=== PATIENT | male | born 1950 | race African-American/Black ===

== ENCOUNTER 2017-08-25 20:14 | Inpatient (IN) ==
[2017-08-25] MEDS ORDERED: PANTOPRAZOLE 40 MG VIAL IV STA (20:59)
[2017-08-25 21:17] LABS: Eosinophils % 0.6 % (0.00-10.9); Immature Granulocytes % 0.5 %; Immature Granulocytes Absolute 0.03 #; Lymphocytes # 0.5 10*3/uL (1.4-4.0); Lymphocytes % 7.5 % (21.2-54.2); Mean Corpuscular HGB Conc 32.9 GM/DL (32-36); Mean Corpuscular Hemoglobin 30 PG (27-34); Mean Corpuscular Volume 91.9 FL (87-102); Mean Platelet Volume 9.9 FL (9.6-12.0); Monocytes # 0.7 10*3/uL (0.11-0.8); Neutrophils # 5.1 10*3/uL (1.4-7.4); Neutrophils % 80.4 % (38.7-73.9); Platelet Count 309 T/CUMM (130-400); Red Blood Count 1.85 MC/CUMM (3.8-5.5); Red Cell Distribution Width 16.7 % (9.3-17.3); White Blood Count 6.4 T/CUMM (4-12)
[2017-08-25 21:21] LABS: Hemoglobin 5.6 GM/DL (14.0-18.0)
[2017-08-25] MEDS ORDERED: SODIUM CHLORIDE 0.9% 1,000 ML IV PRN (21:24)
[2017-08-25 21:25] LABS: INR 1.1; PT Patient Result 11.6 SECS
[2017-08-25 21:36] LABS: Alanine Aminotransferase 23 U/L (16-61); Albumin 3.8 G/DL (3.4-5.0); Alkaline Phosphatase 92 U/L (45-117); Aspartate Amino Transferase 29 U/L (0-37); Bilirubin,Total < 0.39 MG/DL (0.2-1.0); Blood Urea Nitrogen 38 MG/DL (7-18); Calcium 9.6 MG/DL (8.5-10.1); Glucose 96 MG/DL (74-106); Osmolality,Calculated 285.5 MOS/KG (273-304); Potassium 3.6 MMOL/L (3.5-5.1); Sodium 139 MMOL/L (136-145); Total Protein 7.5 G/DL (6.4-8.3)
[2017-08-25 21:38] LABS: Troponin I Only < 0.015 NG/ML (0.00-0.045)
[2017-08-26] MEDS ORDERED: ALBUTEROL/IPRATROPIUM 3 ML NEB RESP TX PRN (00:17)
[2017-08-26] MEDS ORDERED: MORPHINE 2 MG/1 ML SYRINGE IV PRN (00:17)
[2017-08-26] MEDS ORDERED: PROMETHAZINE 25 MG/1 ML VIAL IM PRN (00:17)
[2017-08-26] MEDS ORDERED: SODIUM CHLORIDE 0.9% 1,000 ML IV PRN (00:17)
[2017-08-26] MEDS ORDERED: diphenhydrAMINE 50 MG/1 ML VIAL IV ONE (01:46)
[2017-08-26] MEDS ORDERED: METOCLOPRAMIDE 10 MG/2 ML VIAL IV ONE (01:46)
[2017-08-26] MEDS ORDERED: DEXAMETHASONE 4 MG/1 ML VIAL IV ONE (01:49)
[2017-08-26] MEDS: SODIUM CHLORIDE 0.9% 1,000 ML IV SCH ×2 (02:03→21:19)
[2017-08-26] MEDS ORDERED: FAMOTIDINE 20 MG/2 ML VIAL IV ONE (02:12)
[2017-08-26] MEDS: ALBUTEROL/IPRATROPIUM 3 ML NEB RESP TX SCH ×4 (02:18→17:45)
[2017-08-26] MEDS ORDERED: SODIUM CHLORIDE 0.9% 1,000 ML IV ONE (04:14)
[2017-08-26] MEDS: PANTOPRAZOLE 40 MG VIAL IV SCH ×2 (08:37→21:18)
[2017-08-26] MEDS: LEVOTHYROXINE 100 MCG VIAL IV SCH (09:19)
[2017-08-26 10:08] LABS: Hematocrit 26.6 VOL% (42.0-52.0); Hemoglobin 8.8 GM/DL (14.0-18.0)
[2017-08-26] MEDS ORDERED: LORazepam 1 MG TABLET PO PRN (11:00)
[2017-08-26] MEDS ORDERED: MORPHINE 10 MG/5 ML UDCUP PO PRN (11:06)
[2017-08-26] MEDS: ALUMINUM/MAGNES/SIMETH MAX STR 30 ML UDCUP PO SCH ×4 (11:50→23:00)
[2017-08-26] MEDS: SERTRALINE 100 MG TABLET PO SCH (11:51)
[2017-08-26 12:39] LABS: Hematocrit 33.2 VOL% (42.0-52.0); Hemoglobin 10.4 GM/DL (14.0-18.0)
[2017-08-26 15:46] LABS: Hematocrit 28.9 VOL% (42.0-52.0); Hemoglobin 9.5 GM/DL (14.0-18.0)
[2017-08-26 16:09] LABS: % Iron Saturation 9.9 % (18-50); Ferritin 18.2 ng/ml (26-388)
[2017-08-26 18:30] LABS: Apearance,Urine Slightly Hazy (Clear); Bacteria,Urine Occasional /HPF (Few); Bilirubin,Urine Negative (Negative); Blood, Urine Negative (Negative); Glucose,Urine (UA) Negative (Negative); Ketones,Urine Negative (Negative); Mucus,Urine Occasional /LPF (Occasional); Nitrite,Urine Negative (Negative); Protein,Urine Negative; RBC,Urine 1 /HPF (0-4); Urine Color Yellow (Yellow); Urine Urobilinogen < 2.0 EU/DL (0.2-1.0); WBC,Urine 1 /HPF (0-6)
[2017-08-26] MEDS: DONEPEZIL 5 MG TABLET PO SCH (21:21)
[2017-08-26] MEDS: traZODone 50 MG TABLET PO SCH (21:21)
[2017-08-26 21:31] LABS: Hematocrit 29.3 VOL% (42.0-52.0); Hemoglobin 9.3 GM/DL (14.0-18.0)
[2017-08-27] MEDS: ALBUTEROL/IPRATROPIUM 3 ML NEB RESP TX SCH ×4 (01:10→19:28)
[2017-08-27 05:19] LABS: Basophils % 0.4 % (0.0-0.8); Eosinophils # 0.1 10*3/uL (0.0-0.87); Eosinophils % 2.3 % (0.00-10.9); Hematocrit 24.3 VOL% (42.0-52.0); Hemoglobin 8.1 GM/DL (14.0-18.0); Immature Granulocytes % 0.4 %; Immature Granulocytes Absolute 0.02 #; Lymphocytes # 0.4 10*3/uL (1.4-4.0); Lymphocytes % 7.8 % (21.2-54.2); Mean Corpuscular HGB Conc 33.3 GM/DL (32-36); Mean Corpuscular Hemoglobin 31 PG (27-34); Mean Platelet Volume 9.6 FL (9.6-12.0); Monocytes # 0.6 10*3/uL (0.11-0.8); Monocytes % 11.1 % (1.7-12.7); Neutrophils # 4.4 10*3/uL (1.4-7.4); Platelet Count 208 T/CUMM (130-400); Red Blood Count 2.64 MC/CUMM (3.8-5.5); Red Cell Distribution Width 16.1 % (9.3-17.3); White Blood Count 5.7 T/CUMM (4-12)
[2017-08-27 05:52] LABS: Calcium 8.3 MG/DL (8.5-10.1); Osmolality,Calculated 283.3 MOS/KG (273-304); Potassium 3.8 MMOL/L (3.5-5.1)
[2017-08-27] MEDS: PANTOPRAZOLE 40 MG VIAL IV SCH ×2 (09:09→21:06)
[2017-08-27] MEDS ORDERED: PROPOFOL 200 MG/20 ML VIAL IV ONE (11:39)
[2017-08-27] MEDS ORDERED: LIDOCAINE 2% 5 ML VIAL ONE (11:39)
[2017-08-27] MEDS ORDERED: SODIUM CHLORIDE 0.9% 1,000 ML IV PRN ×2 (12:12)
[2017-08-27] MEDS ORDERED: IRON DEXTRAN 25 MG in SYRINGE 1 EACH IV ONE (13:00)
[2017-08-27] MEDS: SERTRALINE 100 MG TABLET PO SCH (13:14)
[2017-08-27] MEDS: LEVOTHYROXINE 125 MCG TABLET PO SCH (13:14)
[2017-08-27] MEDS: MEMANTINE 5 MG TABLET PO SCH (13:14)
[2017-08-27] MEDS: cefTRIAXone 1,000 MG in SYRINGE 1 EACH IV SCH (13:54)
[2017-08-27 14:21] LABS: Hematocrit 29.5 VOL% (42.0-52.0); Hemoglobin 9.9 GM/DL (14.0-18.0)
[2017-08-27] MEDS: ONDANSETRON 4 MG/2 ML VIAL IV PRN (15:13)
[2017-08-27] MEDS ORDERED: IRON DEXTRAN 1,500 MG in SODIUM CHLORIDE 0.9% 500 ML IV ONE (16:00)
[2017-08-27] MEDS: LEVOTHYROXINE 100 MCG VIAL IV SCH (18:11)
[2017-08-27] MEDS: ALUMINUM/MAGNES/SIMETH MAX STR 30 ML UDCUP PO PRN (18:45)
[2017-08-27] MEDS: DONEPEZIL 5 MG TABLET PO SCH (21:06)
[2017-08-27] MEDS: traZODone 50 MG TABLET PO SCH (21:06)
[2017-08-27] MEDS: MORPHINE 10 MG/5 ML UDCUP PO PRN (21:31)
[2017-08-28] MEDS: ALBUTEROL/IPRATROPIUM 3 ML NEB RESP TX SCH ×4 (00:23→19:25)
[2017-08-28 06:06] LABS: Basophils % 0.3 % (0.0-0.8); Eosinophils # 0.2 10*3/uL (0.0-0.87); Eosinophils % 2.8 % (0.00-10.9); Hemoglobin 8.3 GM/DL (14.0-18.0); Immature Granulocytes % 0.3 %; Immature Granulocytes Absolute 0.02 #; Lymphocytes # 0.4 10*3/uL (1.4-4.0); Lymphocytes % 5.5 % (21.2-54.2); Mean Corpuscular HGB Conc 33.2 GM/DL (32-36); Mean Corpuscular Hemoglobin 30 PG (27-34); Mean Corpuscular Volume 91.6 FL (87-102); Mean Platelet Volume 9.7 FL (9.6-12.0); Monocytes # 0.5 10*3/uL (0.11-0.8); Monocytes % 8.4 % (1.7-12.7); Neutrophils # 5.2 10*3/uL (1.4-7.4); Neutrophils % 82.7 % (38.7-73.9); Platelet Count 216 T/CUMM (130-400); Red Blood Count 2.73 MC/CUMM (3.8-5.5); Red Cell Distribution Width 16.1 % (9.3-17.3); White Blood Count 6.3 T/CUMM (4-12)
[2017-08-28 06:43] LABS: Calcium 8.5 MG/DL (8.5-10.1); Osmolality,Calculated 280.4 MOS/KG (273-304); Potassium 3.2 MMOL/L (3.5-5.1); Prealbumin 29.1 MG/DL (20-40)
[2017-08-28 06:50] LABS: Free T4 (Free Thyroxine) 0.41 NG/DL (0.76-1.46); Thyroid Stimulating Hormone 88.3 uIU/ml (0.358-3.74)
[2017-08-28] MEDS ORDERED: POTASSIUM CHLORIDE 20 MEQ TABLET PO PRN (08:57)
[2017-08-28] MEDS ORDERED: POTASSIUM CHLORIDE 20 MEQ TABLET PO ONE (09:00)
[2017-08-28] MEDS: LEVOTHYROXINE 125 MCG TABLET PO SCH (09:08)
[2017-08-28] MEDS: MEMANTINE 5 MG TABLET PO SCH (09:09)
[2017-08-28] MEDS: cefTRIAXone 1,000 MG in SYRINGE 1 EACH IV SCH (09:09)
[2017-08-28] MEDS: PANTOPRAZOLE 40 MG VIAL IV SCH ×2 (09:10→21:04)
[2017-08-28] MEDS: SERTRALINE 100 MG TABLET PO SCH (10:27)
[2017-08-28] MEDS ORDERED: LIDOCAINE 2% 20 ML VIAL MISC INJ ONE (13:00)
[2017-08-28] MEDS ORDERED: TRIAMCINOLONE ACETONIDE 40 MG/1 ML VIAL MISC INJ ONE (13:00)
[2017-08-28] MEDS ORDERED: LIDOCAINE 2%/EPI 20 ML VIAL MISC INJ ONE (13:30)
[2017-08-28] MEDS: ONDANSETRON 4 MG/2 ML VIAL IV PRN (13:43)
[2017-08-28 15:25] LABS: Hematocrit 26.9 VOL% (42.0-52.0); Hemoglobin 8.7 GM/DL (14.0-18.0)
[2017-08-28] MEDS: ALUMINUM/MAGNES/SIMETH MAX STR 30 ML UDCUP PO PRN (15:34)
[2017-08-28] MEDS: DONEPEZIL 5 MG TABLET PO SCH (21:02)
[2017-08-28] MEDS: traZODone 50 MG TABLET PO SCH (21:02)
[2017-08-28] MEDS: MORPHINE 10 MG/5 ML UDCUP PO PRN (21:11)
[2017-08-29] MEDS: ALBUTEROL/IPRATROPIUM 3 ML NEB RESP TX SCH ×2 (00:26→06:47)
[2017-08-29 07:36] LABS: Basophils % 0.2 % (0.0-0.8); Eosinophils # 0.1 10*3/uL (0.0-0.87); Eosinophils % 2.3 % (0.00-10.9); Hematocrit 25.4 VOL% (42.0-52.0); Hemoglobin 8.2 GM/DL (14.0-18.0); Immature Granulocytes % 0.2 %; Immature Granulocytes Absolute 0.01 #; Lymphocytes # 0.3 10*3/uL (1.4-4.0); Mean Corpuscular HGB Conc 32.3 GM/DL (32-36); Mean Corpuscular Hemoglobin 30 PG (27-34); Mean Platelet Volume 9.6 FL (9.6-12.0); Monocytes # 0.4 10*3/uL (0.11-0.8); Monocytes % 8.5 % (1.7-12.7); Neutrophils # 3.9 10*3/uL (1.4-7.4); Neutrophils % 82.8 % (38.7-73.9); Platelet Count 235 T/CUMM (130-400); Red Blood Count 2.76 MC/CUMM (3.8-5.5); White Blood Count 4.7 T/CUMM (4-12)
[2017-08-29 08:03] LABS: Calcium 8.7 MG/DL (8.5-10.1); Osmolality,Calculated 281.3 MOS/KG (273-304); Potassium 3.8 MMOL/L (3.5-5.1)
[2017-08-29 08:08] VITALS: BP 107/64
[2017-08-29] MEDS: SERTRALINE 100 MG TABLET PO SCH (08:57)
[2017-08-29] MEDS: cefTRIAXone 1,000 MG in SYRINGE 1 EACH IV SCH (08:57)
[2017-08-29] MEDS: MEMANTINE 5 MG TABLET PO SCH (08:57)
[2017-08-29] MEDS: LEVOTHYROXINE 125 MCG TABLET PO SCH (08:57)
[2017-08-29] MEDS: PANTOPRAZOLE 40 MG VIAL IV SCH (09:13)
== END 2017-08-29 11:15 | disposition home or self-care (01) | DRG 378 ==
LOC: EDBD → EDUNIT# → N.ED 20:14 → N.EDINP 22:18 → SUATTDRO 22:18 → N.CC 23:12 → N.2E 08-26 11:00
PROVIDERS: ADMIT Internal Medicine Geriatric Medicine; ATTEND Internal Medicine

== ENCOUNTER 2018-01-24 20:00 | Observation (INO) ==
[2018-01-24] MEDS ORDERED: SODIUM CHLORIDE 0.9% 500 ML IV STA (20:16)
[2018-01-24 20:51] LABS: Basophils % 0.3 % (0.0-0.8); Eosinophils # 0.1 10*3/uL (0.0-0.87); Eosinophils % 3.6 % (0.00-10.9); Hematocrit 30.7 VOL% (42.0-52.0); Hemoglobin 10.3 GM/DL (14.0-18.0); Immature Granulocytes % 0.3 %; Immature Granulocytes Absolute 0.01 #; Lymphocytes # 0.3 10*3/uL (1.4-4.0); Lymphocytes % 9.1 % (21.2-54.2); Mean Corpuscular HGB Conc 33.6 GM/DL (32-36); Mean Corpuscular Hemoglobin 34 PG (27-34); Mean Corpuscular Volume 102.7 FL (87-102); Monocytes # 0.7 10*3/uL (0.11-0.8); Monocytes % 19.9 % (1.7-12.7); Neutrophils # 2.2 10*3/uL (1.4-7.4); Neutrophils % 66.8 % (38.7-73.9); Platelet Count 204 T/CUMM (130-400); Red Blood Count 2.99 MC/CUMM (3.8-5.5); Red Cell Distribution Width 13.6 % (9.3-17.3); White Blood Count 3.3 T/CUMM (4-12)
[2018-01-24] MEDS ORDERED: methylPREDNISolone SOD SUC 125 MG/2 ML VIAL IV STA (21:01)
[2018-01-24] MEDS ORDERED: AMPICILLIN/SULBACTAM 3,000 MG in SODIUM CHLORIDE 0.9% 100 ML IV STA (21:01)
[2018-01-24 21:04] LABS: INR 1.1; PT Patient Result 11.4 SECS; Partial Thromboplastin Time 22.9 SECS (0-40)
[2018-01-24 21:05] LABS: Alanine Aminotransferase 79 U/L (16-61); Albumin 3.8 G/DL (3.4-5.0); Alkaline Phosphatase 99 U/L (45-117); Aspartate Amino Transferase 37 U/L (0-37); Blood Urea Nitrogen 32 MG/DL (7-18); Calcium 9.1 MG/DL (8.5-10.1); Glucose 121 MG/DL (74-106); Osmolality,Calculated 288.3 MOS/KG (273-304); Potassium 3.8 MMOL/L (3.5-5.1); Sodium 141 MMOL/L (136-145); Total Protein 7.9 G/DL (6.4-8.3)
[2018-01-24 21:15] LABS: Eosinophils 4 % (0-10); Lymphocytes 8 % (20-55); Platelet Estimate Normal; Total Cells Counted 100
[2018-01-24 21:16] LABS: Macrocytosis Slight; Segmented Neutrophils 76 % (50-85)
[2018-01-24] MEDS ORDERED: ONDANSETRON 4 MG/2 ML VIAL IV PRN (22:01)
[2018-01-25 00:22] LABS: Apearance,Urine Slightly Hazy (Clear); Bilirubin,Urine Negative (Negative); Blood, Urine Negative (Negative); Glucose,Urine (UA) Negative (Negative); Hyaline Casts,Urine 34 /LPF (0-3); Ketones,Urine Negative (Negative); Mucus,Urine Many /LPF (Occasional); Nitrite,Urine Negative (Negative); Protein,Urine 30 MG/DL; RBC,Urine 2 /HPF (0-4); Urine Color Amber (Yellow); WBC,Urine 3 /HPF (0-6)
[2018-01-25] MEDS: traZODone 50 MG TABLET PEG SCH ×2 (00:25→21:11)
[2018-01-25 00:31] LABS: Barbiturates Screen,Urine Negative (Negative); Benzodiazepines Screen,Urine Negative (Negative); Cannabinoid Screen,Urine Negative (Negative); Opiate Screen,Urine Positive (Negative); Phencyclidine Screen,Urine Negative (Negative)
[2018-01-25 05:12] LABS: Hematocrit 30.4 VOL% (42.0-52.0); Hemoglobin 10.3 GM/DL (14.0-18.0); Immature Granulocytes % 0.3 %; Immature Granulocytes Absolute 0.01 #; Lymphocytes # 0.2 10*3/uL (1.4-4.0); Lymphocytes % 7.7 % (21.2-54.2); Mean Corpuscular HGB Conc 33.9 GM/DL (32-36); Mean Corpuscular Hemoglobin 35 PG (27-34); Mean Corpuscular Volume 102.4 FL (87-102); Mean Platelet Volume 9.7 FL (9.6-12.0); Neutrophils # 2.6 10*3/uL (1.4-7.4); Platelet Count 198 T/CUMM (130-400); Red Blood Count 2.97 MC/CUMM (3.8-5.5); Red Cell Distribution Width 13.6 % (9.3-17.3); White Blood Count 2.9 T/CUMM (4-12)
[2018-01-25 05:30] LABS: Calcium 9.3 MG/DL (8.5-10.1); Osmolality,Calculated 285.4 MOS/KG (273-304); Potassium 4.3 MMOL/L (3.5-5.1)
[2018-01-25 05:42] LABS: Hypochromasia 1+; Lymphocytes 9 % (20-55); Platelet Estimate Adequate; Segmented Neutrophils 89 % (50-85); Total Cells Counted 100
[2018-01-25 05:43] LABS: Macrocytosis Slight
[2018-01-25] MEDS: PANTOPRAZOLE 40 MG TABLET PO SCH (09:01)
[2018-01-25] MEDS: ENOXAPARIN 40 MG/0.4 ML SYRINGE SUBCUT SCH (09:01)
[2018-01-25] MEDS: HALOPERIDOL 1 MG TABLET PEG PRN ×2 (13:07→21:11)
[2018-01-25] MEDS: LEVOTHYROXINE 100 MCG VIAL IV SCH (15:27)
[2018-01-25] MEDS ORDERED: ZIPRASIDONE 20 MG/1 ML VIAL IM ONE (23:03)
[2018-01-26] MEDS: oxyCODONE/ACETAMINOPHEN 5-325 MG TABLET PEG PRN (05:20)
[2018-01-26] MEDS: LEVOTHYROXINE 100 MCG VIAL IV SCH (05:30)
[2018-01-26 06:30] LABS: Calcium 9.7 MG/DL (8.5-10.1); Osmolality,Calculated 287.1 MOS/KG (273-304); Potassium 3.5 MMOL/L (3.5-5.1); Prealbumin 26.3 MG/DL (20-40)
[2018-01-26] MEDS: HALOPERIDOL 1 MG TABLET PEG PRN ×2 (06:40→15:20)
[2018-01-26] MEDS ORDERED: ZIPRASIDONE 20 MG/1 ML VIAL IM ONE (08:20)
[2018-01-26] MEDS: ENOXAPARIN 40 MG/0.4 ML SYRINGE SUBCUT SCH (08:48)
[2018-01-26] MEDS: PANTOPRAZOLE 40 MG TABLET PO SCH (08:48)
[2018-01-26] MEDS: QUEtiapine 25 MG TABLET PO SCH ×2 (08:48→20:35)
[2018-01-26] MEDS ORDERED: ACETAMINOPHEN 325 MG TABLET PO PRN (09:38)
[2018-01-26] MEDS: traZODone 50 MG TABLET PEG SCH (20:35)
[2018-01-27] MEDS: oxyCODONE/ACETAMINOPHEN 5-325 MG TABLET PEG PRN ×3 (02:15→17:53)
[2018-01-27] MEDS: HALOPERIDOL 1 MG TABLET PEG PRN ×3 (02:15→17:48)
[2018-01-27] MEDS: LEVOTHYROXINE 100 MCG VIAL IV SCH (05:53)
[2018-01-27] MEDS: ALUMINUM/MAGNES/SIMETH MAX STR 30 ML UDCUP PO PRN ×2 (06:26→13:01)
[2018-01-27] MEDS: ENOXAPARIN 40 MG/0.4 ML SYRINGE SUBCUT SCH (08:56)
[2018-01-27] MEDS: QUEtiapine 25 MG TABLET PO SCH ×2 (09:10→21:38)
[2018-01-27] MEDS: PANTOPRAZOLE 40 MG TABLET PO SCH (09:10)
[2018-01-27] MEDS: traZODone 50 MG TABLET PEG SCH (21:38)
[2018-01-28 05:40] LABS: Calcium 9.5 MG/DL (8.5-10.1); Osmolality,Calculated 282.4 MOS/KG (273-304); Potassium 3.8 MMOL/L (3.5-5.1)
[2018-01-28] MEDS: oxyCODONE/ACETAMINOPHEN 5-325 MG TABLET PEG PRN (05:51)
[2018-01-28] MEDS: LEVOTHYROXINE 100 MCG VIAL IV SCH (06:15)
[2018-01-28] MEDS: ENOXAPARIN 40 MG/0.4 ML SYRINGE SUBCUT SCH (09:02)
[2018-01-28] MEDS: PANTOPRAZOLE 40 MG TABLET PO SCH (09:02)
[2018-01-28] MEDS: QUEtiapine 25 MG TABLET PO SCH (09:02)
[2018-01-28] MEDS: HALOPERIDOL 1 MG TABLET PEG PRN (09:02)
[2018-01-28 15:13] VITALS: BP 136/89
== END 2018-01-28 14:45 ==
LOC: N.ED 20:00 → N.EDINP 20:00 → N.4E 23:37
PROVIDERS: ADMIT Internal Medicine; ATTEND Internal Medicine

== ENCOUNTER 2018-02-06 21:06 | Observation (INO) ==
[2018-02-06] MEDS ORDERED: SODIUM CHLORIDE 0.9% 500 ML IV STA (21:24)
[2018-02-06 22:03] LABS: Basophils % 0.6 % (0.0-0.8); Eosinophils % 0.9 % (0.00-10.9); Hematocrit 32.2 VOL% (42.0-52.0); Hemoglobin 11.1 GM/DL (14.0-18.0); Immature Granulocytes % 0.3 %; Immature Granulocytes Absolute 0.01 #; Lymphocytes # 0.4 10*3/uL (1.4-4.0); Lymphocytes % 12.8 % (21.2-54.2); Mean Corpuscular HGB Conc 34.5 GM/DL (32-36); Mean Corpuscular Hemoglobin 35 PG (27-34); Monocytes # 0.4 10*3/uL (0.11-0.8); Monocytes % 10.2 % (1.7-12.7); Neutrophils # 2.6 10*3/uL (1.4-7.4); Neutrophils % 75.2 % (38.7-73.9); Platelet Count 230 T/CUMM (130-400); Red Blood Count 3.22 MC/CUMM (3.8-5.5); Red Cell Distribution Width 13.2 % (9.3-17.3); White Blood Count 3.4 T/CUMM (4-12)
[2018-02-06 22:12] LABS: INR 1.1; PT Patient Result 11.1 SECS; Partial Thromboplastin Time 26.4 SECS (0-40)
[2018-02-06 22:26] LABS: Albumin 4.2 G/DL (3.4-5.0); Bilirubin,Total 0.6 MG/DL (0.2-1.0); Calcium 9.9 MG/DL (8.5-10.1); Potassium 3.3 MMOL/L (3.5-5.1); Total Protein 8.6 G/DL (6.4-8.3)
[2018-02-07] MEDS ORDERED: ONDANSETRON 4 MG/2 ML VIAL IV PRN (01:55)
[2018-02-07] MEDS ORDERED: PROMETHAZINE 25 MG/1 ML VIAL IM PRN (01:55)
[2018-02-07] MEDS ORDERED: HALOPERIDOL 5 MG/ML AMP IV PRN (01:55)
[2018-02-07] MEDS: SODIUM CHLORIDE 0.9% 1,000 ML IV SCH ×2 (02:30→22:23)
[2018-02-07] MEDS ORDERED: LIDOCAINE 100 MG/5 ML SYRINGE ONE (09:00)
[2018-02-07] MEDS ORDERED: PROPOFOL 200 MG/20 ML VIAL IV ONE (09:00)
[2018-02-07] MEDS: PANTOPRAZOLE 40 MG VIAL IV SCH (09:26)
[2018-02-07] MEDS ORDERED: HALOPERIDOL CONCENTRATE 2 MG/ML 15 ML BOTTLE PEG PRN (16:10)
[2018-02-07] MEDS ORDERED: POTASSIUM CHLORIDE RIDER 10 MEQ in PREMIX 1 EACH IV PRN (16:13)
[2018-02-07] MEDS ORDERED: POTASSIUM CHLORIDE 20 MEQ TABLET PO PRN (16:13)
[2018-02-07] MEDS: POTASSIUM CHLORIDE 20 MEQ/15 ML UDCUP PER TUBE PRN ×3 (17:20→21:19)
[2018-02-07] MEDS: MEMANTINE 5 MG TABLET PER TUBE SCH (21:19)
[2018-02-07] MEDS: oxyCODONE/ACETAMINOPHEN 5-325 MG TABLET PEG PRN (22:22)
[2018-02-08] MEDS: ZALEPLON 5 MG CAPSULE PO PRN ×2 (03:25→21:49)
[2018-02-08] MEDS: LEVOTHYROXINE 112 MCG TABLET PEG SCH (07:01)
[2018-02-08] MEDS: SERTRALINE 25 MG TABLET PEG SCH (09:44)
[2018-02-08] MEDS: MEMANTINE 5 MG TABLET PER TUBE SCH ×2 (09:44→21:49)
[2018-02-08] MEDS: PANTOPRAZOLE 40 MG VIAL IV SCH (09:44)
[2018-02-08 09:45] LABS: Calcium 9.1 MG/DL (8.5-10.1); Osmolality,Calculated 275.8 MOS/KG (273-304); Potassium 3.5 MMOL/L (3.5-5.1)
[2018-02-08] MEDS: POTASSIUM CHLORIDE 20 MEQ/15 ML UDCUP PER TUBE PRN ×2 (10:20→12:40)
[2018-02-08] MEDS ORDERED: TUBERCULIN SKIN TEST 0.1 ML SYRINGE INTRADERM ONE (10:24)
[2018-02-08] MEDS: SODIUM CHLORIDE 0.9% 1,000 ML IV SCH (12:44)
[2018-02-08] MEDS: oxyCODONE/ACETAMINOPHEN 5-325 MG TABLET PEG PRN (21:49)
[2018-02-09] MEDS: SODIUM CHLORIDE 0.9% 1,000 ML IV SCH ×2 (00:22→08:53)
[2018-02-09] MEDS: LEVOTHYROXINE 112 MCG TABLET PEG SCH (05:31)
[2018-02-09 05:52] LABS: Calcium 8.5 MG/DL (8.5-10.1); Osmolality,Calculated 275.7 MOS/KG (273-304); Potassium 4.1 MMOL/L (3.5-5.1)
[2018-02-09] MEDS: PANTOPRAZOLE 40 MG VIAL IV SCH (08:54)
[2018-02-09] MEDS: SERTRALINE 25 MG TABLET PEG SCH (08:54)
[2018-02-09] MEDS: MEMANTINE 5 MG TABLET PER TUBE SCH ×2 (08:54→22:03)
[2018-02-09] MEDS: oxyCODONE/ACETAMINOPHEN 5-325 MG TABLET PEG PRN ×2 (09:07→17:04)
[2018-02-10] MEDS: SODIUM CHLORIDE 0.9% 1,000 ML IV SCH ×2 (02:22→10:08)
[2018-02-10] MEDS: LEVOTHYROXINE 112 MCG TABLET PEG SCH (06:22)
[2018-02-10] MEDS: oxyCODONE/ACETAMINOPHEN 5-325 MG TABLET PEG PRN (06:23)
[2018-02-10] MEDS: PANTOPRAZOLE 40 MG VIAL IV SCH (09:20)
[2018-02-10] MEDS: SERTRALINE 25 MG TABLET PEG SCH (09:20)
[2018-02-10] MEDS: MEMANTINE 5 MG TABLET PER TUBE SCH ×2 (09:20→21:21)
[2018-02-10] MEDS ORDERED: SIMETHICONE CHEW 80 MG TABLET PO PRN (15:47)
[2018-02-10] MEDS: SIMETHICONE DROPS 40 MG/0.6 ML 30 ML BOTTLE PO PRN (21:21)
[2018-02-10] MEDS: ZALEPLON 5 MG CAPSULE PO PRN (21:26)
[2018-02-11] MEDS: oxyCODONE/ACETAMINOPHEN 5-325 MG TABLET PEG PRN (03:44)
[2018-02-11] MEDS: SIMETHICONE DROPS 40 MG/0.6 ML 30 ML BOTTLE PO PRN (04:25)
[2018-02-11] MEDS: LEVOTHYROXINE 112 MCG TABLET PEG SCH (05:52)
[2018-02-11 08:05] LABS: Calcium 8.7 MG/DL (8.5-10.1); Osmolality,Calculated 275.7 MOS/KG (273-304); Potassium 3.9 MMOL/L (3.5-5.1); Prealbumin 19.5 MG/DL (20-40)
[2018-02-11 09:19] VITALS: BP 120/70
[2018-02-11] MEDS: PANTOPRAZOLE 40 MG VIAL IV SCH (10:17)
[2018-02-11] MEDS: MEMANTINE 5 MG TABLET PER TUBE SCH (10:17)
[2018-02-11] MEDS: SERTRALINE 25 MG TABLET PEG SCH (10:22)
== END 2018-02-11 12:13 | disposition swing bed (61) ==
LOC: EDUNIT# → EDBD → N.ED 21:06 → N.EDINP 23:01 → SUATTDRO 23:01 → INTOOBSV 23:01 → N.5E 02-07 00:49
PROVIDERS: ADMIT Hospitalist; ATTEND Internal Medicine